=== PATIENT | male | born 1995 | race Caucasian/White ===

== ENCOUNTER → 2021-11-16 | Outpatient (CLI) | payer BC ==
--- NOTE | 2021-11-16 12:00 | XR ---
Sternum HISTORY: [id number],[id number] PAIN,SPRAIN 2 views of the sternum No depressed sternal fracture is present. Question some soft tissue swelling. Bone mineralization is maintained. IMPRESSION: No plain film abnormality, bone scan may be of benefit to assess for occult fracture as i ndicated.
== END | disposition home or self-care (01) ==
LOC: RADXRYALE 10:19
PROVIDERS: ATTEND Family Medicine
DX: S23.421D Sprain of chondrosternal joint, subsequent encounter (principal); X58.XXXD Exposure to other specified factors, subsequent encounter
CPT/HCPCS: 71120